=== PATIENT | male | born 1935 | race Caucasian/White ===

== ENCOUNTER → 2017-03-26 | Outpatient (CLI) | payer MEDICARE, OTHER ==
[~2017-03-26] MED LIST: FISH OIL1 GM PO; GLUCOSAMINE CH1 EACH PO; LISINOPRIL-HCT1 EAC1 PO; PROSCAR5 MG PO
== END | disposition short-term general hospital (02) ==
LOC: CLUROL 10:53
DX: N39.0 Urinary tract infection, site not specified (principal); R97.20 Elevated prostate specific antigen [PSA]; R35.0 Frequency of micturition; R39.15 Urgency of urination

== ENCOUNTER → 2017-05-07 | Outpatient (CLI) | payer MEDICARE, OTHER | END | disposition short-term general hospital (02) | LOC: CLPULM 10:48 | DX: J44.9 Chronic obstructive pulmonary disease, unspecified (principal); G47.33 Obstructive sleep apnea (adult) (pediatric); G56.00 Carpal tunnel syndrome, unspecified upper limb; M19.90 Unspecified osteoarthritis, unspecified site; I10 Essential (primary) hypertension; F41.9 Anxiety disorder, unspecified; R45.4 Irritability and anger; G25.81 Restless legs syndrome; J98.4 Other disorders of lung; I51.7 Cardiomegaly ==